=== PATIENT | male | born 1955 | race Caucasian/White ===

== ENCOUNTER → 2021-08-21 | Outpatient (CLI) | payer BC, MEDICARE | END | disposition home or self-care (01) | LOC: LABPAT 09:31 | PROVIDERS: ATTEND Orthopaedic Surgery | DX: Z01.812 Encounter for preprocedural laboratory examination (principal) | CPT/HCPCS: 87070 ==

== ENCOUNTER 2021-09-09 05:51 | Day surgery (SDC) | payer BC, MEDICARE ==
[2021-09-02 08:40] VITALS: BMI 40.6
--- NOTE | 2021-09-08 11:36 | HP ---
HISTORY AND PHYSICAL DATE OF SURGERY: 09/09/2021 Tomás Grant is a 66-year-old patient seen with symptomatic right knee osteoarthritis. We discussed options for treatment. He elected to proceed with right total knee arthroplasty. Consent was obtained. Medical clearance was provided by Dr. Bustillo. PAST MEDICAL HISTORY: Hypertension, hyperlipidemia, gastroesophageal reflux disease. PAST SURGICAL HISTORY: Left total knee arthroplasty. DAILY MEDICATIONS: Amlodipine, atenolol, loratadine, omeprazole. ALLERGIES: NONE. SOCIAL HISTORY: He denies tobacco use. PHYSICAL EVALUATION OF THE RIGHT KNEE: Range of motion zero to 130. Tenderness, medial joint line. Crepitus, medial and patellofemoral compartments with range of motion. Pain with patellofemoral compression. Ligaments stable. Hip rotation without pain. Distal neurovascular exam intact. Right knee radiographs reveal severe osteoarthritic changes. IMPRESSION: 1. Right knee osteoarthritis. 2. Hypertension. 3. Hyperlipidemia. PLAN: Right total knee arthroplasty. MMODL / IJN: [id number] /
[~2021-09-09 05:51] MED LIST: ACETAMINOPHEN TAB 500 MG TAB PO PRN; MELOXICAM 7.5 MG TAB PO PRN; TRANEXAMIC ACID 1,000 MG in SODIUM CHLORIDE 0.9% 100 ML IVPB PRN; ceFAZolin 3 GM in SODIUM CHLORIDE 0.9% 100 ML IVPB PRN
[2021-09-09] MEDS ORDERED: ONDANSETRON 4 MG/2 ML VIAL ONE (06:48)
[2021-09-09] MEDS ORDERED: LACTATED RINGERS 1,000 ML IV ONE ×3 (06:53→09:25)
[2021-09-09] MEDS ORDERED: ONDANSETRON 4 MG/2 ML VIAL IVP ONE (06:55)
[2021-09-09] MEDS ORDERED: DEXAMETHASONE SOD PHOSPHATE 4 MG/ML 1 ML VIAL IVP ONE (06:55)
[2021-09-09] MEDS ORDERED: MIDAZOLAM 2 MG/2 ML VIAL IVP ONE (07:09)
[2021-09-09] MEDS ORDERED: fentaNYL (PF) 50 MCG/ML 2 ML AMP IVP ONE (07:09)
[2021-09-09] MEDS ORDERED: GLYCOPYRROLATE 0.2 MG/ML 2 ML VIAL ONE (07:25)
[2021-09-09] MEDS ORDERED: SUCCINYLCHOLINE CHLORIDE VIAL 200 MG/10 ML VIAL IV ONE (07:25)
[2021-09-09] MEDS ORDERED: NEOSTIGMINE 1 MG/ML 10 ML VIAL ONE (07:25)
[2021-09-09] MEDS ORDERED: DEXAMETHASONE SOD PHOSPHATE 4 MG/ML 1 ML VIAL ONE (07:25)
[2021-09-09] MEDS ORDERED: fentaNYL (PF) 50 MCG/ML 2 ML AMP ONE (07:25)
[2021-09-09] MEDS ORDERED: PROPOFOL 10 MG/ML 20 ML VIAL IV ONE (07:25)
[2021-09-09] MEDS ORDERED: LIDOCAINE 1% INJ 10MG/ML (20 ML MDV) ONE (07:25)
[2021-09-09] MEDS ORDERED: ROPIVACAINE 5 MG/ML 30 ML VIAL ONE (07:25)
[2021-09-09] MEDS ORDERED: TRANEXAMIC ACID 1,000 MG/10 ML VIAL ONE (07:25)
[2021-09-09] MEDS ORDERED: HYDROmorphone (PF) 1 MG/ML ONE (07:25)
[2021-09-09] MEDS ORDERED: SODIUM CHLORIDE 0.9% 100 ML BAG ONE (07:25)
[2021-09-09] MEDS ORDERED: ROCURONIUM 10 MG/ML (5 ML VIAL) IV ONE (07:25)
[2021-09-09] MEDS ORDERED: SODIUM CHLORIDE 0.9% (PF) 10 ML VIAL ONE (07:25)
--- NOTE | 2021-09-09 08:00 | P.ANPRN ---
Procedure Note - Anesthesia - Nerve Block Performed Right Adductor Canal Infusion Time Out Performed: Yes Date of Procedure: 09/09/21 Procedure Start Time: :08 Procedure Stop Time: :18 Location of Patient: PreOp Indication: Requested by Surgeon Specifically requested for management of pain by DrRaza: Chris Tong Sedation Type: Sedate with meaningful contact maintained Preparation: Sterile Prep, Sterile Dressing Position: Supine Catheter: Indwelling Needle Types: Pajunk Needle Gauge: 18 Ultrasound used to visualize needle placement: Yes Ultrasound used to observe medication spread: Yes Injectate: 0.5% Ropivacaine (see comment for volume) (15 ml +10 ml 0.9% NS) Blood Aspirated: No Pain Paresthesia on Injection Noted: No Resistance on Injection: Normal Image Stored and Saved: Yes Events: Uneventful and Well Tolerated
[2021-09-09] MEDS ORDERED: ROPIVACAINE 0.2%-NS ON-Q PUMP 1,090 MG, EMPTY PAIN BALL 1 EACH MISCELLANE PRN (08:02)
--- NOTE | 2021-09-09 08:02 | P.ANPRN ---
Procedure Note - Anesthesia - Nerve Block Performed Right iPack Single Time Out Performed: Yes Date of Procedure: 09/09/21 Procedure Start Time: : Procedure Stop Time: :23 Location of Patient: PreOp Indication: Requested by Surgeon Specifically requested for management of pain by DrRaza: Chris Tong Sedation Type: Sedate with meaningful contact maintained Preparation: Sterile Prep Position: Left Lateral Needle Types: Pajunk Needle Gauge: 21 Ultrasound used to visualize needle placement: Yes Ultrasound used to observe medication spread: Yes Injectate: 0.5% Ropivacaine (see comment for volume) (15 ml + 10ml 0.9% NS +4 mg Dexamethason) Blood Aspirated: No Pain Paresthesia on Injection Noted: No Resistance on Injection: Normal Image Stored and Saved: Yes Events: Uneventful and Well Tolerated
[2021-09-09] MEDS ORDERED: ceFAZolin 1,000 MG in SODIUM CHLORIDE 0.9% 1,000 ML IRRIGATION ONE (08:04)
[2021-09-09] MEDS ORDERED: HYDROmorphone 0.2 MG/1 ML SYRINGE IVP PRN (09:25)
[2021-09-09] MEDS ORDERED: HYDROmorphone 0.5 MG/0.5 ML SYRINGE IVP PRN ×2 (09:25)
[2021-09-09] MEDS ORDERED: ONDANSETRON 4 MG/2 ML VIAL IVP PRN (09:25)
[2021-09-09] MEDS ORDERED: HYDROcodone/APAP 7.5-325MG 1 EACH TAB PO PRN (09:25)
[2021-09-09] MEDS ORDERED: NALOXONE 0.4 MG/ML 1 ML VIAL IV PRN (09:25)
[2021-09-09] MEDS ORDERED: HYDROcodone/APAP 5-325MG 1 EACH TAB PO PRN (09:25)
--- NOTE | 2021-09-09 09:25 | P.OP ---
Date of Procedure: 09/09/21 Preoperative Diagnosis: Right knee osteoarthritis Postoperative Diagnosis: Right knee osteoarthritis Procedure(s) Performed: Right total knee arthroplasty Implants: 1. Depuy attune size 8 right cruciate retaining cemented femur 2. Depuy attune size 7 fixed bearing cemented tibial baseplate 3. Depuy attune size 8 fixed bearing cruciate retaining 12 mm polyethylene tibial insert 4. Depuy attune 41 mm all polyethylene cemented patella Anesthesia: GETA, regional (Adductor canal catheter, Ipack block) Surgeon: Chris Tong Programming Instructor #1: Garcia Martino Estimated Blood Loss (ml): 45 Pathology: other (Bone) Condition: stable Disposition: PACU Indications for Procedure: 66-year-old patient seen with symptomatic right knee osteoarthritis. After treatment options were discussed, he elected to proceed with total knee arthr oplasty. Operative Findings: see description of procedure Description of Procedure: Patient was taken to the operative suite after having an adductor canal catheter placed by the department of anesthesia as well as an Ipack block for postoperative pain management. Patient underwent a general anesthetic by the department of anesthesia. Patient was given preoperative IV intake antibiotics and TXA. A well-padded tourniquet was placed about the right lower extremity. The lower extremity was then prepped and draped in the normal sterile orthopedic fashion. The extremity was elevated, a tourniquet was insufflated to 300. A standard anterior incision was made sharply through skin. Dissection was taken down through the subcutaneous soft tissues down to the extensor mechanism. A medial arthrotomy was performed, patella was everted and knee was flexed. There was advanced osteoarthritis noted. I introduced my distal intramedullary femo ral drill. I then introduced the distal femoral cutting jig. Garcia MACHADO secured the cutting jig with 2 pins. I held retractors in position while Garcia MACHADO performed the distal femoral resection through the guide area we now removed her distal femoral cutting guide. We now placed our 4-in-1 femoral cutting block and positioned and it was secured with 2 pins by Garcia MACHADO while I held the block in position. The distal femoral finishing was now completed. A proximal tibial cutting guide was positioned. I held the guide in the appropriate position with both hands while Garcia MACHADO inserted stabilizing pins into the guide. Proximal tibial cut was made. We now placed a trial femoral component into position, along with an appropriate size tibial tray and insert. We now took the knee through range of motion and had full extension good flexion and good overall soft tissue balance noted. The patella was everted and stabilized with 2 towel clips held by Garcia MACHADO while I performed a flush with patellar quad tendon utilizing a fresh sawblade. We templated the patella, appropriate drill holes were made. An appropriate trial patella was positioned, knee was taken through full range of motion with the patella tracking very nicely. The trial patella was removed. Drill holes were made through the femoral component. All trial components were removed after marking off the appropriate rotation of the tibia. Retractors were now positioned along the proximal tibia. An appropriate keel punch was made with the appropriate size tibial guide by myself on Garcia MACHADO assisted by holding retractors. At this point appropriate size implants were chosen and opened. The joint was irrigated copiously with pulse lavage mechanical irrigation. The posterior capsule was infiltrated with local analgesic. The wound was irrigated with pulse lavage mechanical irrigation. We mixed antibiotic methylmethacrylate. We placed the knee into flexion. We placed multiple retractors assisted by Garcia MACHADO to expose the proximal tibia. Once the methyl methacrylate was ready, the tibial component was cemented into place removing any excess methylmethacrylate form by both myself and Garcia MACHADO. The femoral component was cemented into place removing the removing any excess methylmethacrylate performed by both myself and Garcia MACHADO. We then inserted the appropriate size polyethylene tibial insert. We made sure that it was locked into position. We took the knee into full extension, and then back in a flexion making sure we had removed any excess methylmethacrylate. The patellar component was then cemented down and secured with clamp. Excess methylmethacrylate removed. We kept the knee in full extension, patellar clamp in position until methylmethacrylate had hardened. Once it had hardened the patellar clamp was removed. The knee was taken through full range of motion. The patella tracked nicely. There was good soft tissue balancing. The tourniquet was now released. Additional hemostasis was achieved via electrocautery. A second gram of TXA was given. The wound again was irrigated with pulse lavage mechanical irrigation. The superficial soft tissues were infiltrated local analgesic. The extensor mechanism was repaired with Vicryl. We checked the repair with range of motion and it was stable. The subcutaneous soft tissues were repaired with Vicryl in layers. The skin was approximated with pernio/Dermabond. Sterile dressings were applied followed by loose web roll and Jeff bandage. The patient was transferred to a bed, and taken to recovery in stable and satisfactory condition. Garcia MACHADO assisted with this complex procedure.
[2021-09-09 09:45] VITALS: RESP 16; TEMP 98.3
[2021-09-09] MEDS ORDERED: HYDROmorphone 0.5 MG/0.5 ML SYRINGE IVP ONE ×5 (09:51→10:38)
--- NOTE | 2021-09-09 10:10 | XR ---
EXAMINATION TYPE: XR knee limited RT DATE OF EXAM: 09/09/2021 COMPARISON: NONE TECHNIQUE: Two views submitted HISTORY: Post op FINDINGS: There is a prosthetic knee in near anatomic alignment. There is soft tissue edema and emphysema. IMPRESSION: 1. Postoperative change. Appears in near-anatomic alignment
[2021-09-09] MEDS ORDERED: ceFAZolin 3 GM in SODIUM CHLORIDE 0.9% 100 ML IVPB ONE (11:30)
[2021-09-09 13:49] VITALS: PULSE 64
[2021-09-09 14:07] VITALS: BP 141/76
== END 2021-09-09 15:22 | disposition home health service (06) ==
LOC: OR 05:51
PROVIDERS: ATTEND Orthopaedic Surgery
DX: M17.11 Unilateral primary osteoarthritis, right knee (principal); I10 Essential (primary) hypertension; E78.5 Hyperlipidemia, unspecified; K21.9 Gastro-esophageal reflux disease without esophagitis; Z20.822 Contact with and (suspected) exposure to COVID-19; I83.90 Asymptomatic varicose veins of unspecified lower extremity; G47.33 Obstructive sleep apnea (adult) (pediatric); Z85.830 Personal history of malignant neoplasm of bone; Z96.652 Presence of left artificial knee joint; Z79.899 Other long term (current) drug therapy
CPT/HCPCS: 97110; 97161; 64999; 64448; 76942; 88300; 87635; 73560; 27447; C1776; C1713 ×2; J2250; J0330; J1100; J2710; J0690 ×2; J2405; J2001; J3010; J1170 ×2; J2795 ×2; J2704

== ENCOUNTER → 2022-04-04 | Outpatient (CLI) | payer BC, MEDICARE ==
--- NOTE | 2022-04-04 15:38 | US ---
EXAMINATION TYPE: US venous doppler duplex LE BI DATE OF EXAM: 04/04/2022 2:50 PM COMPARISON: Left lower extremity venous ultrasound January 02, 2016 CLINICAL HISTORY: R60.0 LOCALIZED EDEMA. edema lump right leg. SIDE PERFORMED: Bilateral TECHNIQUE: The lower extremity deep venous system is examined utilizing real time linear array sonog lew with graded compression, doppler sonography and color-flow sonography. VESSELS IMAGED: Common Femoral Vein Deep Femoral Vein Greater Saphenous Vein * Femoral Vein Popliteal Vein Small Saphenous Vein * Proximal Calf Veins (* superficial vessels) Right Leg: Negative for DVT Left Leg: Negative for DVT Grayscale, color doppler, spectral doppler imaging performed of the deep veins of the bilateral lower extremities. There is normal flow, compressibility, vascular waveforms. IMPRESSION: No ultrasound evidence for acute DVT in either lower extremity.
== END | disposition home or self-care (01) ==
LOC: RADUSWWP 14:04
PROVIDERS: ATTEND Family Medicine
DX: R60.0 Localized edema (principal)
CPT/HCPCS: 93970

== ENCOUNTER → 2024-11-02 | Outpatient (CLI) | payer MEDICARE ==
--- NOTE | 2024-11-02 12:47 | CT ---
EXAMINATION TYPE: CT foot RT wo con CT DLP: 327.00 mGycm, Automated exposure control for dose reduction was used. DATE OF EXAM: 11/02/2024 12:37 PM COMPARISON: None CLINICAL INDICATION:Male, 69 years old with history of M89.9 DISORDER OF BONE, UNSPECIFIED; [facility], TECHNIQUE: Axial images were obtained of the right foot without the use of IV contrast. Additional c oronal and sagittal reformatted images and soft tissue and bone window were obtained for review. 3-D reconstruction was created on a separate workstation. FINDINGS: There is no evidence of fracture, subluxation, or dislocation. No osseous erosions. The an kle mortise is intact. Bone island identified within the talus. Degenerative changes of the first MTP joint with joint space narrowing marginal osteophytosis and subchondral cysts. Small ankle joint eff usion. Soft tissue edema most pronounced over the dorsal mid foot. No soft tissue gas. Plantar calcan eal enthesophyte. No focal muscular atrophy. No radiopaque foreign body identified. IMPRESSION: 1. No acute fracture or dislocation. 2. Mild to moderate degenerative changes of the first MTP joint. 3. Mild dorsal midfoot soft tissue edema. 4. Ankle joint effusion. [facility], , 11/02/2024 12:45 PM
== END | disposition home or self-care (01) ==
LOC: RADCTMAIN 11:23
PROVIDERS: ATTEND Family Medicine
DX: M19.071 Primary osteoarthritis, right ankle and foot (principal); M25.461 Effusion, right knee; M89.9 Disorder of bone, unspecified; Z85.830 Personal history of malignant neoplasm of bone